=== PATIENT | female | born 1985 | race Caucasian/White ===

== ENCOUNTER 2017-06-15 06:37 | Inpatient (IN) | payer BC ==
[~2017-06-15] VITALS: Ht 165.1 cm; Wt 63.5 kg
[2017-06-15 06:55] VITALS: BP 109/56
[2017-06-15] MEDS ORDERED: BUTORPHANOL 2 MG/ML VIAL. IV PRN (07:15)
[2017-06-15] MEDS ORDERED: LIDOCAINE 1% PF 30 ML VIAL. INJ PRN (07:15)
[2017-06-15] MEDS ORDERED: 0.9 % SODIUM CHLORIDE 10 ML DISP.SYRIN. IV PRN (07:15)
[2017-06-15] MEDS ORDERED: OXYTOCIN 30 UNIT/500 ML PREMIX 500 ML IV PRN (07:15)
[2017-06-15] MEDS ORDERED: TERBUTALINE 1 MG/ML VIAL. SQ PRN (07:15)
[2017-06-15 07:43] LABS: HEMATOCRIT 35.4 % (36.0-47.0); RED BLOOD COUNT 3.49 x10^6/uL (3.50-5.40); RED CELL DISTRIBUTION WIDTH 13.7 % (11.5-14.5); WHITE BLOOD COUNT 7.5 x10^3/uL (4.0-11.0)
[2017-06-15] MEDS ORDERED: ROPIVacaine 0.2% IN 0.9%NACL PF 40 MG/20 ML DISP.SYRIN. ONE ×2 (07:46→08:00)
[2017-06-15] MEDS ORDERED: fentaNYL PF VIAL 100 MCG/2 ML VIAL ONE (07:46)
[2017-06-15] MEDS ORDERED: L&D EPIDURAL CASSETTE 100 ML EP ONE (08:03)
[2017-06-15] MEDS ORDERED: L&D EPIDURAL CASSETTE 100 ML EP PRN (08:15)
[2017-06-15] MEDS ORDERED: ROPIVacaine 0.2% PF 10 ML VIAL. EPI ONE (08:15)
[2017-06-15] MEDS ORDERED: fentaNYL PF VIAL 100 MCG/2 ML VIAL EPI ONE (08:15)
[2017-06-15] MEDS ORDERED: NALOXONE 0.4 MG/ML VIAL. IV PRN (08:15)
[2017-06-15] MEDS ORDERED: ONDANSETRON PF 4 MG/2 ML VIAL. IV PRN (08:15)
[2017-06-15] MEDS ORDERED: ePHEDrine PF IN SALINE 50 MG/5 ML DISP.SYRIN IV PRN (08:15)
[2017-06-15] MEDS: IV RINGERS,LACTATED 1000ML 1,000 ML IV SCH ×3 (08:39→23:04)
--- NOTE | 2017-06-15 09:36 | HP ---
ADMIT DATE: 06/15/2017 REASON FOR ADMISSION: Labor. HISTORY OF PRESENT ILLNESS: This 32-year-old white female 3, para 1-0-0-1, with estimated gestational age of 38 weeks by LMP consistent with a first trimester ultrasound with EDC of 06/29/2017. The patient started having uterine contractions approximately at 2:30 this morning. Uterine contractions were approximately every 6-7 minutes. She presented to the hospital, was found to be 8 cm dilated. Uterine contractions q. 4 minutes. She underwent spontaneous rupture of membranes at 07:09 hours of clear fluid. Her current examination, she is 9 cm zero station. Pelvis appears adequate for trial of labor proven to approximately 7.5 to 8 pounds. heart tracings 120, category 1 tracing. Tocometer demonstrates uterine contractions q. 4 minutes. The patient's care has been unremarkable to date after the first trimester. She actually had a twin with notation of heart beats on ultrasound. Subsequently, one twin was demised and underwent spontaneous resolution. Otherwise, she had an uneventful . She has been followed in my office in [place], so presented here for delivery. Her labs are as follows: Blood type is O, Rh positive, antibody screen none. Varicella immune, rubella immune, hepatitis B surface is negative. HIV, gonorrhea and chlamydia cultures negative. RPR nonreactive. One-hour glucose is 105. Group B strep culture results are pending performed this past Saturday through the office. PAST OBSTETRICAL HISTORY: 05/02/2016, 40 weeks gestation, she underwent a successful elective induction of labor, delivering a male infant. She had a right labial laceration, did have a labor epidural. This delivery and were also unremarkable. PAST MEDICAL HISTORY: Unremarkable. PAST GYNECOLOGICAL HISTORY: Last Pap in the fall of 2015. Denies any history of abnormal Paps. Denies any history of sexually transmitted diseases. PAST SURGICAL HISTORY: Unremarkable. SOCIAL HISTORY: She is a nonsmoker. Denies alcohol use in the course of . 's name is Heber. FAMILY HISTORY: Noncontributory. DRUG ALLERGIES: No known drug allergies. MEDICATIONS: vitamins. PHYSICAL EXAMINATION: VITAL SIGNS: Per nursing flow sheet. She is afebrile, normotensive. GENERAL: Alert and oriented, no acute distress, breathing through contractions. ABDOMEN: Gravid and soft. Estimated weight by Tc's maneuver is 8 pounds. heart tracing 120, category 1 tracing. Tocometer demonstrates uterine contractions q. 4 minutes. PELVIS: Vaginal exam as described above. EXTREMITIES: Nontender. SKIN: Dry, remarkable for tattoos. IMPRESSION: Intrauterine at 38 weeks gestation in labor. PLAN: The patient was admitted to the hospital for active labor management. Consent signed on the chart. She does labor epidural. This has been afforded to her. Once her labs are available, we will review. We are optimistic that she will undergo a term assisted vaginal delivery. GLENNA TEJEDA DO DR: LAZARO/claudia JOB#: [id number] / [id number]
[2017-06-15] MEDS ORDERED: BENZOCAINE 20% TOPICAL AEROSOL SPRAY 57GM CAN. TP PRN (12:45)
[2017-06-15 15:41] VITALS: BP 103/62
[2017-06-15] MEDS ORDERED: DIPHTH,PERTUSS(ACELL),TET TOX 0.5 ML DISP.SYRIN. VAX IM ONE (15:45)
[2017-06-15] MEDS ORDERED: FLU VACC QS2017-18 (36MOS+)/PF 0.5 ML SYRINGE. VAX IM ONE (15:45)
[2017-06-15 17:09] VITALS: BP 91/50
[2017-06-15 20:30] VITALS: BP 88/53
[2017-06-15] MEDS: IBUPROFEN 600 MG TABLET. PO PRN (20:34)
--- NOTE | 2017-06-15 23:10 | LDN ---
DATE OF DELIVERY: 06/15/2017 PREOPERATIVE DIAGNOSIS: Uterine , 38 weeks' gestation, active labor. POSTOPERATIVE DIAGNOSIS: Uterine , 38 weeks' gestation, active labor. DELIVERING PHYSICIAN: Matt Rader. PROCEDURE: Term assisted vaginal delivery, repair of a right superior labial laceration. OPERATIVE PROCEDURE: The patient was admitted to the hospital in active labor. Consent signed on the chart for trial of labor. The patient had an epidural placed. Progressed to complete, placed in the obstetrical stirrups. She effectively pushed and delivered in the direct occipital anterior position. No nuchal cord was noted. Anterior and posterior shoulder delivered in the usual fashion with gentle downward traction as was the out coming torso. It was held below the peritoneum. The oronasopharynx were bulb suctioned and the gave a vigorous cry. The was then placed on the mother's abdomen. Delayed cord clamping was performed. The cord was then clamped, transected with the bandage scissors. The placenta was delivered in a Perez presentation. All 3-vessel cord without incidence. Inspection of the peritoneum revealed it to be intact. Inspection of the vaginal side boo periurethral area were unremarkable with notation of a superior right labial laceration. This was repaired with 2-0 chromic suture in the usual fashion. Uterine massage was performed as well as infusion of oxytocin, the uterus was firm to palpation with minimal bleeding. The bladder was drained with a red Chago catheter at the end of the procedure. All sponge, instrument, needle counts were correct x 3 per nurse staff in attendance. The patient tolerated the procedure well. The patient delivered a live viable male infant, Apgars of 8 and 9 with weight of 3130 grams. Again, all sponge and needle counts were correct per nurse staff in attendance. ANESTHESIA: Epidural. ESTIMATED BLOOD LOSS: 250 mL. COMPLICATIONS: None apparent. DISPOSITION: Mother and baby stable in the LDR. FRANK DENNY MD DR: BALA/claudia JOB#: [id number] / [id number]
[2017-06-16 05:00] VITALS: BP 84/49
[2017-06-16] MEDS: IV RINGERS,LACTATED 1000ML 1,000 ML IV SCH ×2 (07:04→15:04)
[2017-06-16] MEDS ORDERED: DOCUSATE SODIUM 100 MG CAPSULE. PO SCH (09:00)
[2017-06-16 10:20] VITALS: BP 92/51
[2017-06-16 13:22] VITALS: BP 93/47
[2017-06-16] MEDS: IBUPROFEN 600 MG TABLET. PO PRN (16:44)
[2017-06-16 16:56] VITALS: BP 99/40
[2017-06-16 20:20] VITALS: BP 98/54
[2017-06-16 22:25] VITALS: BP 98/62
--- NOTE | 2017-06-17 01:19 | PN ---
DATE: 06/16/2017 LOCATION: She is in room 383. SUBJECTIVE: The patient is status post term assisted vaginal delivery yesterday. She is . This is going well for her. She denies any marked pelvic pain or pressure, ambulatory, voiding without any difficulty, minimal bleeding. PHYSICAL EXAMINATION: VITAL SIGNS: She is afebrile. Vital signs are stable. GENERAL: Alert and oriented. LUNGS: Clear, without wheezes, rhonchi, or crackles. ABDOMEN: Soft, ____. EXTREMITIES: Nontender. ASSESSMENT: Term assisted vaginal delivery. PLAN: Routine care. She is only requiring Motrin. She is given a prescription for this to go home with. Discharge instructions provided. GLENNA TEJEDA DO DR: LAZARO/claudia JOB#: [id number] / [id number]
[2017-06-17 03:11] LABS: RPR REFLEX Non Reactive (Non Reactive)
--- NOTE | 2017-06-17 13:04 | LDN ---
DATE OF DELIVERY: 06/15/2017 PREOPERATIVE DIAGNOSIS: Uterine , 38 weeks' gestation, active labor. POSTOPERATIVE DIAGNOSIS: Uterine , 38 weeks' gestation, active labor. DELIVERING PHYSICIAN: Glenna Rader. PROCEDURE: Term assisted vaginal delivery, repair of a right superior labial laceration. OPERATIVE PROCEDURE: The patient was admitted to the hospital in active labor. Consent signed on the chart for trial of labor. The patient had an epidural placed. Progressed to complete, placed in the obstetrical stirrups. She effectively pushed and delivered in the direct occipital anterior position. No nuchal cord was noted. Anterior and posterior shoulder delivered in the usual fashion with gentle downward traction as was the out coming torso. It was held below the peritoneum. The oronasopharynx were bulb suctioned and the gave a vigorous cry. The was then placed on the mother's abdomen. Delayed cord clamping was performed. The cord was then clamped, transected with the bandage scissors. The placenta was delivered in a Perez presentation. All 3-vessel cord without incidence. Inspection of the peritoneum revealed it to be intact. Inspection of the vaginal side boo periurethral area were unremarkable with notation of a superior right labial laceration. This was repaired with 2-0 chromic suture in the usual fashion. Uterine massage was performed as well as infusion of oxytocin, the uterus was firm to palpation with minimal bleeding. The bladder was drained with a red Chago catheter at the end of the procedure. All sponge, instrument, needle counts were correct x 3 per nurse staff in attendance. The patient tolerated the procedure well. The patient delivered a live viable male infant, Apgars of 8 and 9 with weight of 3130 grams. Again, all sponge and needle counts were correct per nurse staff in attendance. ANESTHESIA: Epidural. ESTIMATED BLOOD LOSS: 250 mL. COMPLICATIONS: None apparent. DISPOSITION: Mother and baby stable in the LDR. GLENNA RADER DO DR: LAZARO/claudia JOB#: [id number] / [id number]
== END 2017-06-16 23:15 | disposition home or self-care (01) | DRG 775 ==
LOC: OBSVTOIN 06:37 → 3 SO LND 06:37
PROC: 0HQ9XZZ Repair Perineum Skin, External Approach (ICD-10-PCS; principal; 2017-06-15)
PROC: 10E0XZZ Delivery of Products of Conception, External Approach (ICD-10-PCS; 2017-06-15)
DX: O70.0 First degree perineal laceration during delivery (principal); Z37.0 Single live birth; Z3A.38 38 weeks gestation of pregnancy
CPT/HCPCS: 36415; 85027; 86593; 86850; 86900; 86901; 90715; J2590; J2795; J3010; J7120